=== PATIENT | female | born 1990 | race Caucasian/White ===

== ENCOUNTER 2016-09-16 21:07 | Emergency (ER) | payer MEDICAID ==
[~2016-09-16] VITALS: Ht 154.9 cm; Wt 68.6 kg
[2016-09-16] MEDS ORDERED: SODIUM CHLORIDE 0.9% 1,000 ML IV ONE (22:13)
[2016-09-16] MEDS ORDERED: MORPHINE SULFATE 4 MG/ML CPJ (NOT FOR IM USE) IV ONE (22:15)
[2016-09-16] MEDS ORDERED: ONDANSETRON HCL 4MG/2ML VIAL IV ONE (22:30)
[2016-09-16 23:07] LABS: CLARITY URINE CLOUDY (CLEAR); COLOR URINE YELLOW (YELLOW); GLUCOSE URINE NEGATIVE (NEGATIVE); KETONES URINE NEGATIVE (NEGATIVE); LEUKOCYTE ESTERASE URINE 3+ (NEGATIVE); NITRITE URINE NEGATIVE (NEGATIVE); OCCULT BLOOD URINE TRACE (NEGATIVE); PROTEIN URINE NEGATIVE (NEGATIVE); SPECIFIC GRAVITY URINE 1.016 (1.005-1.030); UROBILINOGEN URINE 0.2 E.U./dL (0.2-1.0)
[2016-09-16 23:31] LABS: AMORPHOUS SEDIMENT URINE 1+ /lpf; BACTERIA URINE 2+; SQUAMOUS EPITHELIAL CELL URINE FEW /lpf (RARE/1+)
[2016-09-16 23:37] LABS: INR 1.1; PROTHROMBIN TIME 11.2 sec
[2016-09-16 23:39] LABS: BASOPHILS % 0.6 % (0.0-2.0); EOSINOPHILS % 1.6 % (0.0-5.0); HEMATOCRIT. 37.7 % (36.0-48.0); HEMOGLOBIN. 12.5 g/dL (12.0-16.0); LYMPHOCYTES % 17.5 % (20.0-50.0); MEAN CORPUSCULAR HGB CONC 33.1 g/dL (31.0-37.0); MEAN CORPUSCULAR VOLUME 81.6 fL (81.0-99.0); MEAN PLATELET VOLUME 7.8 fl (7.4-10.4); NEUTROPHILS % 75.3 % (40.0-76.0); PLATELET 290 x1000/uL (130-400); RED BLOOD CELL COUNT 4.63 mill/uL (4.2-5.4); RED CELL DISTRIBUTION WIDTH 13.2 % (11.6-14.6)
[2016-09-16 23:43] LABS: ALANINE AMINOTRANSFERASE 69 IU/L (13-61); ALBUMIN 3.5 g/dL (3.4-5.0); ANION GAP 10; CALCIUM 7.7 mg/dL (8.5-10.1); CARBON DIOXIDE 27 mEq/L (21-32); CHLORIDE 109 mEq/L (98-107); INDEX HEMOLYSI 1 (1-3); INDEX ICTERIC 1 (1-4); INDEX LIPEMIC 1 (1-3); LIPASE 181 IU/L (73-393); UREA NITROGEN BLOOD 12 mg/dL (7-21); eGFR > 60 mL/min (>60)
[2016-09-17 02:00] VITALS: BP 110/65
== END 2016-09-17 02:02 | disposition home or self-care (01) ==
LOC: ER 21:08
DX: N39.0 Urinary tract infection, site not specified (principal); K80.50 Calculus of bile duct without cholangitis or cholecystitis without obstruction; Z88.0 Allergy status to penicillin
CPT/HCPCS: 36415; 80053; 81001; 81025; 83690; 85025; 85610; 96374; 96375; 99284; J2270; J2405; Z7610; J7030

== ENCOUNTER 2016-10-02 03:30 | Emergency (ER) | payer MEDICAID ==
[2016-10-02] MEDS ORDERED: MORPHINE SULFATE 4 MG/ML CPJ (NOT FOR IM USE) IV ONE (05:48)
[2016-10-02] MEDS ORDERED: ONDANSETRON HCL 4MG/2ML VIAL ONE (05:50)
[2016-10-02 07:58] VITALS: BP 105/56
== END 2016-10-02 09:14 | disposition home or self-care (01) ==
LOC: ER 03:30
DX: K80.50 Calculus of bile duct without cholangitis or cholecystitis without obstruction (principal); Z88.0 Allergy status to penicillin
CPT/HCPCS: 81025; 96374; 96375; 99284; J2270; J2405

== ENCOUNTER 2018-04-27 19:52 | Emergency (ER) | payer MEDICAID ==
[~2018-04-27] VITALS: Ht 157.5 cm; Wt 91.0 kg
[2018-04-27 20:27] VITALS: BP 141/86
== END 2018-04-28 03:30 | disposition left against medical advice (07) ==
LOC: ER 19:52
DX: Z53.21 Procedure and treatment not carried out due to patient leaving prior to being seen by health care provider (principal)